=== PATIENT | female | born 1950 | race Caucasian/White ===

== ENCOUNTER 2017-04-19 10:12 | Inpatient (IN) | payer MEDICAID, OTHER ==
[~2017-04-19] VITALS: Ht 167.6 cm; Wt 61.8 kg
[2017-04-19] MEDS ORDERED: KETOROLAC 30 MG INJ IM STA (10:39)
[2017-04-19] MEDS ORDERED: HYDROCODONE/APAP (5/325) TAB PO ONE (11:00)
--- NOTE | 2017-04-19 11:49 | RADRPT ---
PROCEDURE: XR Chest. CLINICAL INDICATION: Pain TECHNIQUE: Single frontal view of the chest was obtained COMPARISON: None FINDINGS: Bilateral small pleural effusions. No pneumothorax. Bibasilar opacities. Top normal cardiomediastinal silhouette. No acute osseous abnormality. IMPRESSION: Small bilateral pleural effusions and bibasilar opacities, which may represent atelectasis and / or consolidation. Superimposed infection to be determined clinically. Recommend clinical correlation. RPTAT: EE Physician Karl Date Time Electronically viewed and signed by Don Tavares Physician on 04/19/2017 11:48 /
--- NOTE | 2017-04-19 12:09 | RADRPT ---
PROCEDURE: XR Left Shoulder CLINICAL INDICATION: Pain TECHNIQUE: 3 views were submitted. COMPARISON: None FINDINGS: Osseous structures: appear well mineralized and intact with no fracture or destructive process iden tified. Joint spaces: The glenohumeral joint appears unremarkable. The left AC joint appears unremarkable. Soft tissues: Discoid atelectasis or streaky infiltrate is seen at the left lung base. IMPRESSION: 1. Unremarkable left shoulder 2. Discoid atelectasis or streaky infiltrate seen at the left lung base. Physician Chirag Date Time Electronically viewed and signed by Carla Fulton Physician on 04/19/2017 12:09 /
--- NOTE | 2017-04-19 12:11 | RADRPT ---
PROCEDURE: XR cervical spine CLINICAL INDICATION: Pain TECHNIQUE: 3 standard radiographs were obtained of the cervical spine. COMPARISON: None FINDINGS: Alignment: is normal without subluxation. The atlantoaxial relationship appears normal Disk spaces: There is relative loss of disc height at C5-C6 and at C6-C7 with moderate anterior spon dylosis on the endplates. Osseous structures : appear intact with no fracture or destructive process identified. Soft tissues: are unremarkable. IMPRESSION: 1. Degenerative disc and endplate changes evident and C5-C6 and C6-C7. 2. Otherwise, unremarkable cervical spine series. Physician Chirag Date Time Electronically viewed and signed by Physician Chirag on 04/19/2017 12:10 /
[2017-04-19] MEDS ORDERED: SOD CHLORIDE 0.9% 100 ML ONE (13:56)
[2017-04-19] MEDS ORDERED: IOHEXOL 100 ML ONE (13:56)
--- NOTE | 2017-04-19 14:44 | RADRPT ---
PROCEDURE: CTA Chest and pulmonary angiogram. CLINICAL INDICATION: Chest pain and shortness of breath. TECHNIQUE: CT scan of the chest and CT pulmonary angiogram was performed on a multidetector high-r [employer] CT scanner. High-resolution thin slice coronal and sagittal imaging was obtained from the axial source images. 3-D volumetric rendered post processing was performed as well. The patient w as examined following the uncomplicated intravenous administration of 100 cc of Omnipaque-350. The i mages were reviewed on a PACS workstation. One or more of the following dose reduction techniques we re used: Automated exposure control, adjustment of the mA and/or kV according to patient size, use of iterative reconstruction technique. The total exam CTDI equals 35.2, 8.41 and the total exam DLP equals 282.21 mGy-cm. COMPARISON: None available. FINDINGS: CT chest: Bilateral subpleural reticulation and scarring is seen with predominately lower lobe distribution, w orst in the left lower lobe. There is also mild bilateral lower lobe bronchiectasis. There is trace left effusion. No focal opacification, pneumothorax, edema, or nodules are seen. The central trache obronchial tree is clear. There is a prominent subcarinal lymph node measuring 2.8 x 1.2 x 2.3 cm. Additional mildly prominent pretracheal and prevascular lymph nodes measure up to 1 cm in diameter. The vascular structures o f the mediastinum are normal in course and caliber. The heart size is normal without pericardial th ickening or effusion. The axillary, subpectoral, and supraclavicular regions are unremarkable. Imaging obtained through the upper abdomen is unremarkable. The surrounding chest wall is unremark able. The osseous structures are remarkable for degenerative spondylosis of the spine. CT pulmonary angiogram: Filling defects are seen within subsegmental branches of the left lower lobe consistent with pulmona ry emboli. No additional thrombus, clot, filling defect, or pulmonary web is identified. The pulmon dali arteries are normal in caliber and morphology. There is no evidence for pulmonary arterial hype rtension. IMPRESSION: 1. Left lower lobe subsegmental pulmonary embolism. 2. Bilateral subpleural reticulation and scarring, worse in the left lower lobe, concerning for chr onic interstitial lung change. 3. Mild bilateral lower lobe bronchiectasis. 4. Nonspecific prominent subcarinal, paratracheal, and prevascular lymph nodes. May be reactive. 5. Trace left effusion. Findings discussed with Dr. Moses on 04/19/2107 at 02:40 PM. RPTAT: QQ .Marc Montero MD, MD Date Time Electronically viewed and signed by .Marc Montero MD, MD on 04/19/2017 14:43 .A/
[2017-04-19] MEDS ORDERED: ENOXAPARIN 80 MG/0.8 ML SYG SC SCH (15:30)
[2017-04-19] MEDS ORDERED: METF500T4 PO (15:49)
--- NOTE | 2017-04-19 16:07 | ERD ---
ER Documentation Chief Complaint Chief Complaint Complains of left shoulder pain HPI This is 66-year-old female who complains of 2 days ago the onset of some pain in her left paraspinal cervical region and then she said it was spreading into her left shoulder and left posterior mid axillary chest wall. She says she was short of breath and felt pleuritic chest pain described as sharp worse when she breathes in but has not had a cough and no trauma. She states she has no substernal chest pressure. She has had no cough or hemoptysis no tachycardia or palpitations. She says the pain is worse when she moves ROS All systems reviewed and are negative except as per history of present illness. Medications Home Meds Reported Medications Metformin* (Glucophage*) 500 Mg Tab, 500 MG PO BID, #30 TAB 04/19/17 Allergies Allergies: Coded Allergies: No Known Allergy (Unverified , 04/19/17) PMhx/Soc Medical and Surgical Hx: pt denies Surgical Hx Hx Cardiac Disorders: Yes (hypertension and diabetes mellitus) Hx Psychiatric Problems: No Hx Miscellaneous Medical Probl: Yes Hx Alcohol Use: No Hx Substance Use: No Hx Tobacco Use: No Smoking Status: Never smoker FmHx Family History: No coronary disease Physical Exam Vitals Vital Signs Date Time Temp Pulse Resp B/P Pulse Ox O2 Delivery O2 Flow Rate FiO2 04/19/17 15:25 72 17 131/65 100 Room Air 04/19/17 10:17 98.9 93 20 145/72 99 Physical Exam Const: Well-developed, well-nourished Head: Atraumatic, normocephalic Eyes: Normal Conjunctiva, PERRLA, EOMI, normal sclera, no nystagmus ENT: Normal External Ears, Nose and Mouth, moist mucus membranes. Neck: Full range of motion. No meningismus, no lymphadenopathy. Resp: Clear to auscultation bilaterally, no wheezing, rhonchi, rales, the left midaxillary and posterior chest wall are tender to palpation and pain is reproducible, the pain is also worse with rotation of the trunk Cardio: Regular rate and rhythm, no murmurs, S1 S2 present Abd: Soft, non tender x 4, non distended. Normal bowel sounds, no guarding or rebound, no pulsitile abdominal masses or bruits Skin: No petechiae or rashes, no ecchymosis , no maculopapular rash Back: No midline or flank tenderness Ext: No cyanosis, or edema, FROM x 4, normal inspection, neurovascularly intact x 4 Neur: Awake and alert, STR 5/5 x 4, sensation intact x 4, no focal findings, cerebellum intact Psych: Normal Mood and Affect Result Diagram: 04/19/17 1215 04/19/17 1215 Results 24 hrs Laboratory Tests Test 04/19/17 12:10 04/19/17 12:15 Urine Color YELLOW Urine Clarity CLEAR Urine pH 7.0 Urine Specific [place] 1.006 Urine Ketones NEGATIVEmg/dL Urine Nitrite NEGATIVEmg/dL Urine Bilirubin NEGATIVEmg/dL Urine Urobilinogen NEGATIVEmg/dL Urine Leukocyte Esterase TRACELeu/ul Urine Microscopic RBC 0/HPF Urine Microscopic WBC 4/HPF Urine Hemoglobin NEGATIVEmg/dL Urine Glucose NEGATIVEmg/dL Urine Total Protein NEGATIVEmg/dl White Blood Count 16.610^3/ul Red Blood Count 3.7210^6/ul Hemoglobin 10.5g/dl Hematocrit 31.8% Mean Corpuscular Volume 85.5fl Mean Corpuscular Hemoglobin 28.2pg Mean Corpuscular Hemoglobin Concent 33.0g/dl Red Cell Distribution Width 14.4% Platelet Count 89210^3/UL Mean Platelet Volume 10.9fl Neutrophils % 71.9% Lymphocytes % 19.7% Monocytes % 7.4% Eosinophils % 0.1% Basophils % 0.5% Nucleated Red Blood Cells % 0.0/100WBC Neutrophils # 12.010^3/ul Lymphocytes # 3.310^3/ul Monocytes # 1.210^3/ul Eosinophils # 0.010^3/ul Basophils # 0.110^3/ul Nucleated Red Blood Cells # 0.010^3/ul Sodium Level 142mmol/L Potassium Level 4.4mmol/L Chloride Level 106mmol/L Carbon Dioxide Level 26mmol/L Anion Gap 14 Blood Urea Nitrogen 10mg/dl Creatinine 0.81mg/dl Glucose Level 127mg/dl Calcium Level 9.9mg/dl Total Bilirubin 0.2mg/dl Direct Bilirubin 0.00mg/dl Indirect Bilirubin 0.2mg/dl Aspartate Amino Transf (AST/SGOT) 52IU/L Alanine Aminotransferase (ALT/SGPT) 29IU/L Alkaline Phosphatase 85IU/L Total Protein 8.4g/dl Albumin 4.2g/dl Globulin 4.20g/dl Albumin/Globulin Ratio 1.00 Lipase 14U/L Current Medications Medications (Trade) Dose Ordered Sig/Sheryl Route PRN Reason Start Time Stop Time Status Last Admin Dose Admin Ketorolac Tromethamine (Toradol) 30 mg ONCE STAT IM 04/19/17 10:39 04/19/17 10:42 DC 04/19/17 11:10 Acetaminophen/ Hydrocodone Bitart 1 tab 1 tab ONCE ONCE PO 04/19/17 11:00 04/19/17 11:01 DC 04/19/17 11:11 Iohexol 100 ml @ ud STK-MED ONCE .ROUTE 04/19/17 13:56 04/19/17 13:57 DC Sodium Chloride (NS) 100 ml @ ud STK-MED ONCE .ROUTE 04/19/17 13:56 04/19/17 13:57 DC Enoxaparin Sodium (Lovenox) 60 mg ONCE SC 04/19/17 15:30 04/19/17 15:38 Procedures/MDM PROCEDURE: XR Left Shoulder CLINICAL INDICATION: Pain TECHNIQUE: 3 views were submitted. COMPARISON: None FINDINGS: Osseous structures: appear well mineralized and intact with no fracture or destructive process identified. Joint spaces: The glenohumeral joint appears unremarkable. The left AC joint appears unremarkable. Soft tissues: Discoid atelectasis or streaky infiltrate is seen at the left lung base. IMPRESSION: 1. Unremarkable left shoulder 2. Discoid atelectasis or streaky infiltrate seen at the left lung base. Physician Chirag Date Time Electronically viewed and signed by Physician Chirag on 04/19/2017 12:09 RH/ CC: PINA MOSES MD PROCEDURE: XR Chest. CLINICAL INDICATION: Pain TECHNIQUE: Single frontal view of the chest was obtained COMPARISON: None FINDINGS: Bilateral small pleural effusions. No pneumothorax. Bibasilar opacities. Top normal cardiomediastinal silhouette. No acute osseous abnormality. IMPRESSION: Small bilateral pleural effusions and bibasilar opacities, which may represent atelectasis and / or consolidation. Superimposed infection to be determined clinically. Recommend clinical correlation. RPTAT: EE Don Tavares Physician Date Time Electronically viewed and signed by Physician Karl on 04/19/2017 11 :48 GC/ CC: PINA MOSES MD PROCEDURE: XR cervical spine CLINICAL INDICATION: Pain TECHNIQUE: 3 standard radiographs were obtained of the cervical spine. COMPARISON: None FINDINGS: Alignment: is normal without subluxation. The atlantoaxial relationship appears normal Disk spaces: There is relative loss of disc height at C5-C6 and at C6-C7 with moderate anterior spondylosis on the endplates. Osseous structures : appear intact with no fracture or destructive process identified. Soft tissues: are unremarkable. IMPRESSION: 1. Degenerative disc and endplate changes evident and C5-C6 and C6-C7. 2. Otherwise, unremarkable cervical spine series. Physician hCirag Date Time Electronically viewed and signed by Physician Chirag on 04/19/2017 12:10 RH/ CC: PINA MOSES MD PROCEDURE: CTA Chest and pulmonary angiogram. CLINICAL INDICATION: Chest pain and shortness of breath. TECHNIQUE: CT scan of the chest and CT pulmonary angiogram was performed on a multidetector high-resolution CT scanner. High-resolution thin slice coronal and sagittal imaging was obtained from the axial source images. 3-D volumetric rendered post processing was performed as well. The patient was examined following the uncomplicated intravenous administration of 100 cc of Omnipaque- 350. The images were reviewed on a PACS workstation. One or more of the following dose reduction techniques were used: Automated exposure control, adjustment of the mA and/or kV according to patient size, use of iterative reconstruction technique. The total exam CTDI equals 35.2, 8.41 and the total exam DLP equals 282.21 mGy-cm. COMPARISON: None available. FINDINGS: CT chest: Bilateral subpleural reticulation and scarring is seen with predominately lower lobe distribution, worst in the left lower lobe. There is also mild bilateral lower lobe bronchiectasis. There is trace left effusion. No focal opacification , pneumothorax, edema, or nodules are seen. The central tracheobronchial tree is clear. There is a prominent subcarinal lymph node measuring 2.8 x 1.2 x 2.3 cm. Additional mildly prominent pretracheal and prevascular lymph nodes measure up to 1 cm in diameter. The vascular structures of the mediastinum are normal in course and caliber. The heart size is normal without pericardial thickening or effusion. The axillary, subpectoral, and supraclavicular regions are unremarkable. Imaging obtained through the upper abdomen is unremarkable. The surrounding chest wall is unremarkable. The osseous structures are remarkable for degenerative spondylosis of the spine. CT pulmonary angiogram: Filling defects are seen within subsegmental branches of the left lower lobe consistent with pulmonary emboli. No additional thrombus, clot, filling defect, or pulmonary web is identified. The pulmonary arteries are normal in caliber and morphology. There is no evidence for pulmonary arterial hypertension. IMPRESSION: 1. Left lower lobe subsegmental pulmonary embolism. 2. Bilateral subpleural reticulation and scarring, worse in the left lower lobe , concerning for chronic interstitial lung change. 3. Mild bilateral lower lobe bronchiectasis. 4. Nonspecific prominent subcarinal, paratracheal, and prevascular lymph nodes. May be reactive. 5. Trace left effusion. Findings discussed with Dr. Moses on 04/19/2107 at 02:40 PM. RPTAT: QQ .Marc Montero MD, Date Time Electronically viewed and signed by .Marc Montero MD, on 04/19/2017 14:43 .A/ CC: PINA MOSES MD The patient was given Lovenox subcu for the pulmonary embolism. We will admit the patient to be treated for pulmonary embolism Critical Care Time: 30 minutes Treatments/Evaluations: Close monitoring and treatment of unstable vital signs, cardiorespiratory, and neurologic status, while maintaining tight balance of fluid, respiratory, and cardiac interventions. This time includes discussing the case with the patient and the patient's family. This time does not include all procedures stated elsewhere in this record. This time also includes reviewing old records, labs and radiological studies. This time includes examining and re-examining the patient. Additionally, this time also includes arranging care with admitting and consulting physicians. Departure Diagnosis: Primary Impression: Pulmonary embolism Pulmonary embolism type: other Chronicity: acute Acute cor pulmonale presence: without acute cor pulmonale Qualified Code: I26.99 - Other acute pulmonary embolism without acute cor pulmonale Condition: Stable TIM GREENWOOD DO Apr 19, 2017 16:07
[2017-04-19] MEDS ORDERED: ONDANSETRON 4 MG INJ IV PRN ×2 (18:00→18:30)
[2017-04-19] MEDS ORDERED: ACETAMINOPHEN 325 MG TAB PO PRN ×2 (18:00→18:30)
[2017-04-19] MEDS ORDERED: MAGNESIUM HYDROXIDE 30ML CUP PO PRN (18:30)
[2017-04-19] MEDS ORDERED: DOCUSATE SODIUM 100 MG CAP PO PRN (18:30)
[2017-04-19] MEDS ORDERED: NACL 0.9% 3 ML SYG IV SCH (18:30)
--- NOTE | 2017-04-19 18:31 | HP ---
Date/Time of Note Date/Time of Note DATE: 04/19/17 TIME: 18:31 Assessment/Plan VTE Prophylaxis VTE Prophylaxis Intervention: LMWH Assessment/Plan Assessment/Plan 1. Acute left lower lobe subsegmental pulmonary embolism - Patient presented with shoulder and neck pain as well as chest wall tenderness. - CTA shows acute left lower lobe subsegmental pulmonary embolism. Bilateral subpleural reticulation and scarring is seen with predominately lower lobe distribution, worst in the left lower lobe. There is also mild bilateral lower lobe bronchiectasis. - Started on full dose Lovenox - Pain management - Lidoderm patch to left chest wall for relief - O2 supplement as needed to maintain saturations >90% - Neb treatments - Pulmonology consult placed for further recommendations 2. DM - Will check A1c - ISS and accuchecks - Hold Metformin 3. HTN - BP stable. continue monitoring 4. Leukocytosis - Most likely reactive. - Normal neutrophils - Continue monitoring - patient afebrile and will hold off on started on any antibiotics 5. Depression - s/p of her years ago - stable. not on any medications 6. Diet - Carb control 7. Code status - Full Code 8. GI ppx - Pepcid 9. DVT ppx - Lovenox 10. Disposition - Admit to telemetry for close monitoring HPI/ROS Admit Date/Time Admit Date/Time 04/19/2017 Hx of Present Illness 66 yo F with PMH Diabetes Mellitus, HTN, and depression presented to ED c/o 8/ 10 pain in left cervical area, left shoulder and left posterior mid axillary chest wall for the past 2 days. Patient has associated difficulty breathing with deep inspiratory secondary to pain but denies any fevers, cough, wheezing, dizziness, nausea, vomiting, dysuria, or abdominal issues. She states pain is worse with deep breaths and movement, and better with pain medications. States has been doing a lot of house work over the past couple days but denies being immobile for long period of time. ROS All 12 systems reviewed and pertinent positives as per HPI. All others negative. Constitutional: No chills, No fatigue, No febrile, No nausea Eyes: no complaints ENT: No congestion, No pain Respiratory: pleuritic pain, shortness of breath, No cough, No sputum, No wheezing Cardiovascular: chest pain, No edema, No lightheadedness, No palpitations Gastrointestinal: no complaints, No constipation, No diarrhea, No nausea, No vomiting Genitourinary: no complaints Musculoskeletal: back pain, neck pain Skin: no complaints, No pruritis, No rash Neurologic: no complaints Endocrine: no complaints Lymphatic: no complaints Psychological: depression Immunologic: no complaints PMH/Family/Social Past Medical History Medical History: diabetes, hypertension, other (depression after loss of ) Past Surgical History Past Surgical Hx: no surgical history Family History Significant Family History: no pertinent family hx Social History Alcohol Use: none Smoking Status: Never smoker Drug Use: none Exam/Review of Systems Vital Signs Vitals Vital Signs Date Time Temp Pulse Resp B/P Pulse Ox O2 Delivery O2 Flow Rate FiO2 04/19/17 17:55 68 24 128/70 98 Nasal Cannula 2.0 04/19/17 10:17 98.9 Exam Constitutional: alert, distress (secondary to pain with inspiration and movement), oriented, well developed Psych: nl mood/affect Head: atraumatic, normocephalic Eyes: EOMI, PERRL, nl sclera Neck: other (tender left cervical spine), supple Respiratory: diminished breath sounds, normal air movement, other (tenderness to palpation left midaxillary and posterior chest wall), No crackles/rales, No wheezing Cardiovascular: regular rate and rhythm, No edema, No murmurs/extra sounds, No systolic murmur Gastrointestinal: bowel sounds, non-tender, soft, No distended, No rebound or guarding Genitourinary - Female: No CVA tenderness Musculoskeletal: nl extremities to inspection Extremities: normal pulses Neurological: [employer] TE[employer]ICIAN II-XII intact, nl mental status, nl speech Skin: nl turgor Lymph: nl lymph nodes Labs Result Diagram: 04/19/17 1215 04/19/17 1215 Medications Medications Home medications reviewed Current Medications Enoxaparin Sodium (Lovenox) 60 mg ONCE SC Last administered on 04/19/17t 15:38 ; Admin Dose 60 MG; Start 04/19/17 at 15:30 Procedures Procedures PROCEDURE: CTA Chest and pulmonary angiogram. FINDINGS: CT chest: Bilateral subpleural reticulation and scarring is seen with predominately lower lobe distribution, worst in the left lower lobe. There is also mild bilateral lower lobe bronchiectasis. There is trace left effusion. No focal opacification , pneumothorax, edema, or nodules are seen. The central tracheobronchial tree is clear. There is a prominent subcarinal lymph node measuring 2.8 x 1.2 x 2.3 cm. Additional mildly prominent pretracheal and prevascular lymph nodes measure up to 1 cm in diameter. The vascular structures of the mediastinum are normal in course and caliber. The heart size is normal without pericardial thickening or effusion. The axillary, subpectoral, and supraclavicular regions are unremarkable. Imaging obtained through the upper abdomen is unremarkable. The surrounding chest wall is unremarkable. The osseous structures are remarkable for degenerative spondylosis of the spine. CT pulmonary angiogram: Filling defects are seen within subsegmental branches of the left lower lobe consistent with pulmonary emboli. No additional thrombus, clot, filling defect, or pulmonary web is identified. The pulmonary arteries are normal in caliber and morphology. There is no evidence for pulmonary arterial hypertension. IMPRESSION: 1. Left lower lobe subsegmental pulmonary embolism. 2. Bilateral subpleural reticulation and scarring, worse in the left lower lobe , concerning for chronic interstitial lung change. 3. Mild bilateral lower lobe bronchiectasis. 4. Nonspecific prominent subcarinal, paratracheal, and prevascular lymph nodes. May be reactive. 5. Trace left effusion. PROCEDURE: XR cervical spine FINDINGS: Alignment: is normal without subluxation. The atlantoaxial relationship appears normal Disk spaces: There is relative loss of disc height at C5-C6 and at C6-C7 with moderate anterior spondylosis on the endplates. Osseous structures : appear intact with no fracture or destructive process identified. Soft tissues: are unremarkable. IMPRESSION: 1. Degenerative disc and endplate changes evident and C5-C6 and C6-C7. 2. Otherwise, unremarkable cervical spine series. PROCEDURE: XR Chest. FINDINGS: Bilateral small pleural effusions. No pneumothorax. Bibasilar opacities. Top normal cardiomediastinal silhouette. No acute osseous abnormality. IMPRESSION: Small bilateral pleural effusions and bibasilar opacities, which may represent atelectasis and / or consolidation. Superimposed infection to be determined clinically. Recommend clinical correlation. PROCEDURE: XR Left Shoulder CLINICAL INDICATION: Pain TECHNIQUE: 3 views were submitted. COMPARISON: None FINDINGS: Osseous structures: appear well mineralized and intact with no fracture or destructive process identified. Joint spaces: The glenohumeral joint appears unremarkable. The left AC joint appears unremarkable. Soft tissues: Discoid atelectasis or streaky infiltrate is seen at the left lung base. IMPRESSION: 1. Unremarkable left shoulder 2. Discoid atelectasis or streaky infiltrate seen at the left lung base. ESPERANZA SAEED MD Apr 19, 2017 18:31
[2017-04-19] MEDS: morphine 2 MG INJ IV PRN (18:37)
[2017-04-19 18:58] VITALS: BP 159/70; PULSE 71; RESP 22
[2017-04-19 19:00] VITALS: Ht 167.6 cm; Wt 61.8 kg
[2017-04-19] MEDS ORDERED: GLUCOSE GEL 15 GRAM TUBE BUCCAL PRN (19:00)
[2017-04-19] MEDS ORDERED: GLUCAGON 1 MG INJ IM PRN (19:00)
[2017-04-19] MEDS ORDERED: GLUCOSE GEL 15 GRAM TUBE PO PRN ×2 (19:00)
[2017-04-19] MEDS ORDERED: DEXTROSE 50% 50 ML SYRINGE IV PRN ×2 (19:00)
[2017-04-19 19:05] VITALS: PULSE 71
[2017-04-19] MEDS: HYDROCODONE/APAP (5/325) TAB PO PRN (19:53)
[2017-04-19 19:55] VITALS: BP 159/70; RESP 18
[2017-04-19 20:00] VITALS: PULSE 80
[2017-04-19] MEDS: ALBUTEROL 0.083% (NEB) 2.5 MG/3 ML AMP HHN SCH (20:07)
[2017-04-19] MEDS: INSULIN ASPART [NOVOLOG] 3 ML PEN SC SCH (21:00)
[2017-04-19] MEDS: LIDOCAINE 5% PATCH TD SCH (21:54)
[2017-04-19] MEDS: FAMOTIDINE 20 MG TAB PO SCH (21:55)
[2017-04-19 23:49] VITALS: BP 116/57; RESP 18
[2017-04-20] VITALS (12 sets, daily range): BP systolic 102–143; BP diastolic 55–71; PULSE 78–98; RESP 16–20
[2017-04-20] MEDS: morphine 2 MG INJ IV PRN ×2 (01:03→21:02)
[2017-04-20] MEDS: ACCU-CHEK XX SCH (02:00)
[2017-04-20] MEDS: HYDROmorphONE 0.5 MG/0.5 ML SYG IV PRN (04:24)
[2017-04-20] MEDS: HYDROCODONE/APAP (5/325) TAB PO PRN ×3 (06:32→19:18)
[2017-04-20] MEDS: FAMOTIDINE 20 MG TAB PO SCH ×2 (08:56→21:00)
[2017-04-20] MEDS: INSULIN ASPART [NOVOLOG] 3 ML PEN SC SCH ×4 (08:57→21:22)
[2017-04-20] MEDS ORDERED: ENOXAPARIN 100 MG/ML SYG SC SCH (09:00)
[2017-04-20] MEDS: ALBUTEROL 0.083% (NEB) 2.5 MG/3 ML AMP HHN SCH ×4 (09:43→20:02)
--- NOTE | 2017-04-20 13:32 | PN ---
Date/Time of Note Date/Time of Note DATE: 04/20/17 TIME: 13:32 Assessment/Plan VTE Prophylaxis VTE Prophylaxis Intervention: LMWH Lines/Catheters IV [facility] (from [facility] Saline Lock Urinary Cath still in place: No Assessment/Plan Assessment/Plan 1. Acute left lower lobe subsegmental pulmonary embolism - Pulmonology on board and recommendations appreciated. Will need outpatient PFT - Transitioned patient to Eliquis 10mg BID for 7 days then 5mg BID. workers' compensation magistrate consultation placed to assess cost of medications as patients family covers her medical cost. - Will need to assess need for home O2 as well given patient has been desaturating with movement - CTA shows acute left lower lobe subsegmental pulmonary embolism. Bilateral subpleural reticulation and scarring is seen with predominately lower lobe distribution, worst in the left lower lobe. There is also mild bilateral lower lobe bronchiectasis. - Pain management - Lidoderm patch to left chest wall for relief - O2 supplement as needed to maintain saturations >90% - Neb treatments 2. DM - A1c 6.0 - ISS and accuchecks - Hold Metformin 3. HTN - BP stable. continue monitoring 4. Leukocytosis- resolved - Most likely reactive. - Continue monitoring 5. Depression - s/p of her 3 years ago - stable. not on any medications 6. Disposition - Continue monitoring in telemetry given patient still experiencing pain and labored breathing Subjective 24 Hr Interval Summary Free Text/Dictation Patient still experiencing pain in left chest area with little relief from lidoderm patch. Desaturates when she moves. No acute overnight events. Exam/Review of Systems Vital Signs Vitals Vital Signs Date Time Temp Pulse Resp B/P Pulse Ox O2 Delivery O2 Flow Rate FiO2 04/20/17 12:31 98.3 79 16 110/60 99 04/20/17 09:50 3.0 04/20/17 09:43 Nasal Cannula Intake and Output 04/19/17 04/19/17 04/20/17 15:00 23:00 07:00 Intake Total 240 ml Output Total 2 ml Balance 238 ml Exam General- in acute distress secondary to pain, awake and alert HEENT: NC/AT, PERRL, EOMI CVS: S1, S2 regular rate and rhythm. no murmurs appreciated Lungs: diminished breath sounds left side, shallow breathing, reproducible pain left midaxillary and posterior chest wall Abd: soft, NT, ND, +BS, no rebound or guarding Ext: no edema, cyanosis, or clubbing, +pulses Skin: warm, dry Results Result Diagram: 04/20/17 0516 04/20/17 0516 Results 24 hrs Laboratory Tests Test 04/19/17 19:52 04/20/17 05:16 04/20/17 08:21 04/20/17 11:22 Bedside Glucose 114 165 190 White Blood Count 10.4 # Red Blood Count 3.33 L Hemoglobin 9.2 L Hematocrit 28.7 L Mean Corpuscular Volume 86.2 Mean Corpuscular Hemoglobin 27.6 L Mean Corpuscular Hemoglobin Concent 32.1 Red Cell Distribution Width 14.6 H Platelet Count 324 Mean Platelet Volume 10.8 H Neutrophils % 64.3 Lymphocytes % 25.2 Monocytes % 9.0 Eosinophils % 0.8 Basophils % 0.5 Nucleated Red Blood Cells % 0.0 Neutrophils # 6.7 Lymphocytes # 2.6 Monocytes # 0.9 Eosinophils # 0.1 Basophils # 0.1 Nucleated Red Blood Cells # 0.0 Sodium Level 140 Potassium Level 4.5 Chloride Level 105 Carbon Dioxide Level 29 Anion Gap 11 Blood Urea Nitrogen 11 Creatinine 0.82 Glucose Level 110 Calcium Level 9.7 Phosphorus Level 3.3 Magnesium Level 2.1 Albumin 3.4 Medications Medications Current Medications Enoxaparin Sodium (Lovenox) 60 mg ONCE SC Last administered on 04/19/17 15:38 ; Admin Dose 60 MG; Start 04/19/17 at 15:30 Ondansetron HCl (Zofran Inj) 4 mg Q6H PRN IV NAUSEA AND/OR VOMITING; Start 04/19/17 at 18:30 Acetaminophen (Tylenol Tab) 650 mg Q6H PRN PO PAIN LEVEL 1-3 OR FEVER; Start 04/19/17 at 18:30 Acetaminophen/ Hydrocodone Bitart ([place] (5/325)) 1 tab Q6H PRN PO PAIN LEVEL 4 -6 Last administered on 04/20/17 12:54; Admin Dose 1 TAB; Start 04/19/17 at 18: 30 Morphine Sulfate (morphine) 2 mg Q4H PRN IV PAIN LEVEL 4-6 Last administered on 04/20/17 01:03; Admin Dose 2 MG; Start 04/19/17 at 18:30 Hydromorphone HCl (Dilaudid) 0.5 mg Q4H PRN IV PAIN LEVEL 7-10 Last administered on 04/20/17 04:24; Admin Dose 0.5 MG; Start 04/19/17 at 18:30 Docusate Sodium (Colace) 100 mg Q12H PRN PO CONSTIPATION; Start 04/19/17 at 18: 30 Magnesium Hydroxide (Milk Of Mag) 30 ml DAILY PRN PO CONSTIPATION; Start at 18:30 Famotidine (Pepcid) 20 mg Q12 PO Last administered on 04/20/17 08:56; Admin Dose 20 MG; Start 04/19/17 at 21:00 Enoxaparin Sodium (Lovenox) 60 mg Q12 SC Last administered on 04/20/17 08:58; Admin Dose 60 MG; Start 04/20/17 at 09:00 Diagnostic Test (Pha) (Accu-Chek) 1 ea 02 XX ; Start 04/20/17 at 02:00 Miscellaneous Information 1 ea NOTE XX ; Start 04/19/17 at 19:00 Glucose (Glutose) 15 gm Q15M PRN PO DECREASED GLUCOSE; Start 04/19/17 at 19:00 Glucose (Glutose) 22.5 gm Q15M PRN PO DECREASED GLUCOSE; Start 04/19/17 at 19: 00 Dextrose (D50w Syringe) 25 ml Q15M PRN IV DECREASED GLUCOSE; Start 04/19/17 at 19:00 Dextrose (D50w Syringe) 50 ml Q15M PRN IV DECREASED GLUCOSE; Start 04/19/17 at 19:00 Glucagon (Glucagen) 1 mg Q15M PRN IM DECREASED GLUCOSE; Start 04/19/17 at 19:00 Glucose (Glutose) 15 gm Q15M PRN BUCCAL DECREASED GLUCOSE; Start 04/19/17 at 19 :00 Lidocaine (Lidoderm) 1 patch DAILY@21 TD Last administered on 04/19/17 21:54; Admin Dose 1 PATCH; Start 04/19/17 at 21:00 ESPERANZA SAEED MD Apr 20, 2017 13:32
--- NOTE | 2017-04-20 15:44 | CONS ---
Date/Time of Note Date/Time of Note DATE: 04/20/17 TIME: 15:35 Assessment/Plan Assessment/Plan Additional Assessment/Plan IMP: 1. LLL Segmental and Subsegmental PE--no obvious risk factors for VTE. Though would benefit from limited hypercoag w/u as well as age appropriate malignancy screening 2. Possible UIP--based on CT findings of diffuse peripheral reticulations (with craniocaudad gradient) and traction bronchiectasis. Though her history of prolonged exposure to wood burning ovens raises possibility of Hut Lung with associated ILD. RECS: 1. May transition to Apixaban PO 2. Initiate hypercoag w/u (prothrombin gene mutation and factor V leiden) 3. Age appropriate cancer screening (mammo; colonoscopy; PAP) 4. Will likely require lifelong anticoagulation 5. Outpatient PFTs Consultation Date/Type/Reason Admit Date/Time 04/19/2017 Type of Consultation: Pulmonary Hx of Present Illness 66-year-old female with a history of DM, HTN, arthritis, presents with left- sided pleuritic chest pain and dyspnea over a course of 2-3 days. She denies any recent trauma, surgery, prolonged immobilization, or FH of hypercoagulable states. CTA showed LLL segmental and subsegmental PE and diffused peripheral reticulations and traction bronchiectasis. Constitutional: no complaints Eyes: no complaints ENT: No congestion, No pain Respiratory: pleuritic pain, shortness of breath, No cough, No sputum, No wheezing Cardiovascular: chest pain, No edema, No lightheadedness, No palpitations Gastrointestinal: no complaints, No constipation, No diarrhea, No nausea, No vomiting Genitourinary: no complaints Musculoskeletal: back pain, neck pain Skin: no complaints, No pruritis, No rash Neurologic: no complaints Lymphatic: no complaints Psychological: nl mood/affect Immunologic: no complaints Past Medical History Medical History: diabetes, hypertension, other (depression after loss of ) Past Surgical History Past Surgical Hx: no surgical history Family History Significant Family History: no pertinent family hx Social History Alcohol Use: none Smoking Status: Never smoker Drug Use: none Other Social History Lived in home in [place] with wood-burning oven. Exam/Review of Systems Vital Signs Vitals Vital Signs Date Time Temp Pulse Resp B/P Pulse Ox O2 Delivery O2 Flow Rate FiO2 04/20/17 14:17 98 3.0 04/20/17 14:16 85 20 Nasal Cannula 04/20/17 12:31 98.3 110/60 Intake and Output 04/19/17 04/19/17 04/20/17 15:00 23:00 07:00 Intake Total 240 ml Output Total 2 ml Balance 238 ml Exam Constitutional: alert, oriented, well developed Psych: no complaints Head: atraumatic, normocephalic Eyes: EOMI, nl conjunctiva, nl lids ENMT: nl external ears & nose, nl lips & teeth, nl nasal mucosa & septum Neck: non-tender, supple Respiratory: crackles/rales Cardiovascular: nl pulses, regular rate and rhythm Gastrointestinal: nl liver, spleen, non-tender, soft Musculoskeletal: nl extremities to inspection Extremities: normal pulses Neurological: HOME THEATRE TECHNICIAN II-XII intact, nl mental status, nl speech, nl strength Results Result Diagram: 04/20/17 0516 04/20/17 0516 Results 24 hrs Laboratory Tests Test 04/19/17 19:52 04/20/17 05:16 04/20/17 08:21 04/20/17 11:22 Bedside Glucose 114 165 190 White Blood Count 10.4 # Red Blood Count 3.33 L Hemoglobin 9.2 L Hematocrit 28.7 L Mean Corpuscular Volume 86.2 Mean Corpuscular Hemoglobin 27.6 L Mean Corpuscular Hemoglobin Concent 32.1 Red Cell Distribution Width 14.6 H Platelet Count 324 Mean Platelet Volume 10.8 H Neutrophils % 64.3 Lymphocytes % 25.2 Monocytes % 9.0 Eosinophils % 0.8 Basophils % 0.5 Nucleated Red Blood Cells % 0.0 Neutrophils # 6.7 Lymphocytes # 2.6 Monocytes # 0.9 Eosinophils # 0.1 Basophils # 0.1 Nucleated Red Blood Cells # 0.0 Sodium Level 140 Potassium Level 4.5 Chloride Level 105 Carbon Dioxide Level 29 Anion Gap 11 Blood Urea Nitrogen 11 Creatinine 0.82 Glucose Level 110 Calcium Level 9.7 Phosphorus Level 3.3 Magnesium Level 2.1 Albumin 3.4 Medications Medications Current Medications Enoxaparin Sodium (Lovenox) 60 mg ONCE SC Last administered on 04/19/17t 15:38 ; Admin Dose 60 MG; Start 04/19/17 at 15:30 Ondansetron HCl (Zofran Inj) 4 mg Q6H PRN IV NAUSEA AND/OR VOMITING; Start 04/19/17 at 18:30 Acetaminophen (Tylenol Tab) 650 mg Q6H PRN PO PAIN LEVEL 1-3 OR FEVER; Start 04/19/17 at 18:30 Acetaminophen/ Hydrocodone Bitart ([place] (5/325)) 1 tab Q6H PRN PO PAIN LEVEL 4 -6 Last administered on 04/20/17 12:54; Admin Dose 1 TAB; Start 04/19/17 at 18: 30 Morphine Sulfate (morphine) 2 mg Q4H PRN IV PAIN LEVEL 4-6 Last administered on 04/20/17 01:03; Admin Dose 2 MG; Start 04/19/17 at 18:30 Hydromorphone HCl (Dilaudid) 0.5 mg Q4H PRN IV PAIN LEVEL 7-10 Last administered on 04/20/17 04:24; Admin Dose 0.5 MG; Start 04/19/17 at 18:30 Docusate Sodium (Colace) 100 mg Q12H PRN PO CONSTIPATION; Start 04/19/17 at 18: 30 Magnesium Hydroxide (Milk Of Mag) 30 ml DAILY PRN PO CONSTIPATION; Start at 18:30 Famotidine (Pepcid) 20 mg Q12 PO Last administered on 04/20/17 08:56; Admin Dose 20 MG; Start 04/19/17 at 21:00 Enoxaparin Sodium (Lovenox) 60 mg Q12 SC Last administered on 04/20/17 08:58; Admin Dose 60 MG; Start 04/20/17 at 09:00 Diagnostic Test (Pha) (Accu-Chek) 1 ea 02 XX ; Start 04/20/17 at 02:00 Miscellaneous Information 1 ea NOTE XX ; Start 04/19/17 at 19:00 Glucose (Glutose) 15 gm Q15M PRN PO DECREASED GLUCOSE; Start 04/19/17 at 19:00 Glucose (Glutose) 22.5 gm Q15M PRN PO DECREASED GLUCOSE; Start 04/19/17 at 19: 00 Dextrose (D50w Syringe) 25 ml Q15M PRN IV DECREASED GLUCOSE; Start 04/19/17 at 19:00 Dextrose (D50w Syringe) 50 ml Q15M PRN IV DECREASED GLUCOSE; Start 04/19/17 at 19:00 Glucagon (Glucagen) 1 mg Q15M PRN IM DECREASED GLUCOSE; Start 04/19/17 at 19:00 Glucose (Glutose) 15 gm Q15M PRN BUCCAL DECREASED GLUCOSE; Start 04/19/17 at 19 :00 Lidocaine (Lidoderm) 1 patch DAILY@21 TD Last administered on 04/19/17t 21:54; Admin Dose 1 PATCH; Start 04/19/17 at 21:00 JEFF TOBAR MD Apr 20, 2017 15:44
[2017-04-20] MEDS: APIXABAN 5 MG TABLET PO SCH (21:00)
[2017-04-20] MEDS: LIDOCAINE 5% PATCH TD SCH (21:02)
[2017-04-21] VITALS (11 sets, daily range): BP systolic 108–128; BP diastolic 58–65; PULSE 80–110; RESP 17–20
[2017-04-21] MEDS: ACCU-CHEK XX SCH (02:34)
[2017-04-21] MEDS: morphine 2 MG INJ IV PRN ×2 (03:14→07:50)
[2017-04-21] MEDS: ALBUTEROL 0.083% (NEB) 2.5 MG/3 ML AMP HHN SCH ×3 (08:15→16:09)
[2017-04-21] MEDS: FAMOTIDINE 20 MG TAB PO SCH ×2 (08:33→20:56)
[2017-04-21] MEDS: APIXABAN 5 MG TABLET PO SCH ×2 (08:33→20:55)
[2017-04-21] MEDS: INSULIN ASPART [NOVOLOG] 3 ML PEN SC SCH ×3 (08:37→21:00)
[2017-04-21] MEDS: HYDROCODONE/APAP (5/325) TAB PO PRN ×2 (12:03→20:57)
--- NOTE | 2017-04-21 13:43 | CONS ---
Date/Time of Note Date/Time of Note DATE: 04/21/17 TIME: 13:41 Consult Date/Type/Reason Admit Date/Time Apr 19, 2017 at 17:49 Initial Consult Date Type of Consultation: Pulmonary Subjective Patient comfortable this morning still has moderate pleuritic chest pain however ambulating. Hypoxemia off supplemental O2. Objective Vital Signs Date Time Temp Pulse Resp B/P Pulse Ox O2 Delivery O2 Flow Rate FiO2 04/21/17 12:22 2.0 04/21/17 12:21 89 20 99 21 04/21/17 12:09 98.8 114/65 04/21/17 08:15 Nasal Cannula Intake and Output 04/20/17 04/20/17 04/21/17 15:00 23:00 07:00 Intake Total 600 ml 500 ml Balance 600 ml 500 ml Exam GENERAL: Well-developed lady comfortable at rest VITAL SIGNS: per chart NECK: Supple. No JVD or lymphadenopathy. CARDIAC EXAM: S1, S2. No added sounds or murmurs. CHEST: clear bilaterally, No added sounds, rales or wheezes ABDOMEN: Soft, nontender. No guarding or rebound. EXTREMITIES: No cyanosis, clubbing or edema. NEUROLOGIC: Generalized weakness. No focal deficits. Results/Medications Result Diagram: 04/21/17 0647 04/21/17 0647 Results 24 hrs Laboratory Tests Test 04/20/17 17:02 04/20/17 21:10 04/21/17 02:33 04/21/17 06:47 Bedside Glucose 191 190 133 White Blood Count 8.1 # Red Blood Count 3.45 L Hemoglobin 9.7 L Hematocrit 30.1 L Mean Corpuscular Volume 87.2 Mean Corpuscular Hemoglobin 28.1 L Mean Corpuscular Hemoglobin Concent 32.2 Red Cell Distribution Width 14.4 Platelet Count 395 # Mean Platelet Volume 10.3 Neutrophils % 61.5 Lymphocytes % 27.4 Monocytes % 7.3 Eosinophils % 3.1 Basophils % 0.5 Nucleated Red Blood Cells % 0.0 Neutrophils # 5.0 Lymphocytes # 2.2 Monocytes # 0.6 Eosinophils # 0.3 Basophils # 0.0 Nucleated Red Blood Cells # 0.0 Sodium Level 140 Potassium Level 4.7 Chloride Level 102 Carbon Dioxide Level 30 Anion Gap 13 Blood Urea Nitrogen 10 Creatinine 0.90 Glucose Level 146 Calcium Level 9.9 Phosphorus Level 3.7 Magnesium Level 2.2 Albumin 3.8 Test 04/21/17 08:32 04/21/17 12:01 Bedside Glucose 189 220 Medications Current Medications Ondansetron HCl (Zofran Inj) 4 mg Q6H PRN IV NAUSEA AND/OR VOMITING; Start 04/19/17 at 18:30 Acetaminophen (Tylenol Tab) 650 mg Q6H PRN PO PAIN LEVEL 1-3 OR FEVER; Start 04/19/17 at 18:30 Acetaminophen/ Hydrocodone Bitart ([place] (5/325)) 1 tab Q6H PRN PO PAIN LEVEL 4 -6 Last administered on 04/21/17 12:03; Admin Dose 1 TAB; Start 04/19/17 at 18: 30 Morphine Sulfate (morphine) 2 mg Q4H PRN IV PAIN LEVEL 4-6 Last administered on 04/21/17 07:50; Admin Dose 2 MG; Start 04/19/17 at 18:30 Hydromorphone HCl (Dilaudid) 0.5 mg Q4H PRN IV PAIN LEVEL 7-10 Last administered on 04/20/17 04:24; Admin Dose 0.5 MG; Start 04/19/17 at 18:30 Docusate Sodium (Colace) 100 mg Q12H PRN PO CONSTIPATION; Start 04/19/17 at 18: 30 Magnesium Hydroxide (Milk Of Mag) 30 ml DAILY PRN PO CONSTIPATION; Start at 18:30 Famotidine (Pepcid) 20 mg Q12 PO Last administered on 04/21/17 08:33; Admin Dose 20 MG; Start 04/19/17 at 21:00 Diagnostic Test (Pha) (Accu-Chek) 1 ea 02 XX Last administered on 04/21/17 02: 34; Admin Dose 1 EA; Start 04/20/17 at 02:00 Miscellaneous Information 1 ea NOTE XX ; Start 04/19/17 at 19:00 Glucose (Glutose) 15 gm Q15M PRN PO DECREASED GLUCOSE; Start 04/19/17 at 19:00 Glucose (Glutose) 22.5 gm Q15M PRN PO DECREASED GLUCOSE; Start 04/19/17 at 19: 00 Dextrose (D50w Syringe) 25 ml Q15M PRN IV DECREASED GLUCOSE; Start 04/19/17 at 19:00 Dextrose (D50w Syringe) 50 ml Q15M PRN IV DECREASED GLUCOSE; Start 04/19/17 at 19:00 Glucagon (Glucagen) 1 mg Q15M PRN IM DECREASED GLUCOSE; Start 04/19/17 at 19:00 Glucose (Glutose) 15 gm Q15M PRN BUCCAL DECREASED GLUCOSE; Start 04/19/17 at 19 :00 Lidocaine (Lidoderm) 1 patch DAILY@21 TD Last administered on 04/20/17 21:02; Admin Dose 1 PATCH; Start 04/19/17 at 21:00 Apixaban (Eliquis) 10 mg BID PO Last administered on 04/21/17 08:33; Admin Dose 10 MG; Start 04/20/17 at 21:00; Stop 04/27/17 at 09:01 Apixaban (Eliquis) 5 mg BID PO ; Start 04/27/17 at 21:00 Assessment/Plan Chief Complaint/Hosp Course IMP: 1. LLL Segmental and Subsegmental PE--no obvious risk factors for VTE. Though would benefit from limited hypercoag w/u as well as age appropriate malignancy screening 2. Possible UIP--based on CT findings of diffuse peripheral reticulations (with craniocaudad gradient) and traction bronchiectasis. Though her history of prolonged exposure to wood burning ovens raises possibility of Hut Lung with associated ILD. RECS: 1. May transition to Apixaban PO 2. Initiate hypercoag w/u (prothrombin gene mutation and factor V leiden) 3. Age appropriate cancer screening (mammo; colonoscopy; PAP) 4. Will likely require lifelong anticoagulation 5. Outpatient PFTs DC planning. Problems: BART BLOMO MD, [facility] Apr 21, 2017 13:43
--- NOTE | 2017-04-21 16:30 | PN ---
Date/Time of Note Date/Time of Note DATE: 04/21/17 TIME: 16:25 Assessment/Plan VTE Prophylaxis VTE Prophylaxis Intervention: ambulation Lines/Catheters [facility] Saline Lock Urinary Cath still in place: No Assessment/Plan Chief Complaint/Hosp Course 1. Acute left lower lobe subsegmental pulmonary embolism - Pulmonology on board and recommendations appreciated. Will need outpatient PFT - Transitioned patient to Eliquis 10mg BID for 7 days then 5mg BID. 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 - Will need to assess need for home O2 as well given patient has been desaturating with movement, but doing better today on room air. - CTA shows acute left lower lobe subsegmental pulmonary embolism. Bilateral subpleural reticulation and scarring is seen with predominately lower lobe distribution, worst in the left lower lobe. There is also mild bilateral lower lobe bronchiectasis. - Pain management - Lidoderm patch to left chest wall for relief - O2 supplement as needed to maintain saturations >90% - Neb treatments 2. DM - A1c 6.0 - ISS and accuchecks - Hold Metformin 3. HTN - BP stable. continue monitoring 4. Leukocytosis- resolved - Most likely reactive. - Continue monitoring 5. Depression - s/p of her 3 years ago - stable. not on any medications 6. Disposition - hypoxemia improving. working on getting medications delivered bedside. likely DC tomorrow if no need of O2 and meds get delivered Problems: Subjective 24 Hr Interval Summary Free Text/Dictation still has difficulty breathing, but improved Exam/Review of Systems Vital Signs Vitals Vital Signs Date Time Temp Pulse Resp B/P Pulse Ox O2 Delivery O2 Flow Rate FiO2 04/21/17 16:11 80 20 94 21 04/21/17 15:38 98.1 123/63 04/21/17 12:22 2.0 04/21/17 08:15 Nasal Cannula Intake and Output 04/20/17 04/20/17 04/21/17 15:00 23:00 07:00 Intake Total 600 ml 500 ml Balance 600 ml 500 ml Exam Physical exam General: Patient is laying in bed and answers questions appropriately Mentation: Patient is alert and oriented 4, Head: Normocephalic atraumatic Eyes: EOMI, pupils reactive to light Neck: Supple, nontender, midline Respiratory: Clear to auscultation bilaterally Cardiovascular: regular rate, no obvious murmurs Gastrointestinal: non-tender to palpation, bowel sounds heard. Neurological: Moves all extremities spontaneously Skin: No new skin lesions Results Result Diagram: 04/21/17 0647 04/21/17 0647 Results 24 hrs Laboratory Tests Test 04/20/17 17:02 04/20/17 21:10 04/21/17 02:33 04/21/17 06:47 Bedside Glucose 191 190 133 White Blood Count 8.1 # Red Blood Count 3.45 L Hemoglobin 9.7 L Hematocrit 30.1 L Mean Corpuscular Volume 87.2 Mean Corpuscular Hemoglobin 28.1 L Mean Corpuscular Hemoglobin Concent 32.2 Red Cell Distribution Width 14.4 Platelet Count 395 # Mean Platelet Volume 10.3 Neutrophils % 61.5 Lymphocytes % 27.4 Monocytes % 7.3 Eosinophils % 3.1 Basophils % 0.5 Nucleated Red Blood Cells % 0.0 Neutrophils # 5.0 Lymphocytes # 2.2 Monocytes # 0.6 Eosinophils # 0.3 Basophils # 0.0 Nucleated Red Blood Cells # 0.0 Sodium Level 140 Potassium Level 4.7 Chloride Level 102 Carbon Dioxide Level 30 Anion Gap 13 Blood Urea Nitrogen 10 Creatinine 0.90 Glucose Level 146 Calcium Level 9.9 Phosphorus Level 3.7 Magnesium Level 2.2 Albumin 3.8 Test 04/21/17 08:32 04/21/17 12:01 Bedside Glucose 189 220 Medications Medications Current Medications Ondansetron HCl (Zofran Inj) 4 mg Q6H PRN IV NAUSEA AND/OR VOMITING Last administered on 04/21/17 15:27; Admin Dose 4 MG; Start 04/19/17 at 18:30 Acetaminophen (Tylenol Tab) 650 mg Q6H PRN PO PAIN LEVEL 1-3 OR FEVER; Start 04/19/17 at 18:30 Acetaminophen/ Hydrocodone Bitart ([place] (5/325)) 1 tab Q6H PRN PO PAIN LEVEL 4 -6 Last administered on 04/21/17 12:03; Admin Dose 1 TAB; Start 04/19/17 at 18: 30 Morphine Sulfate (morphine) 2 mg Q4H PRN IV PAIN LEVEL 4-6 Last administered on 04/21/17 07:50; Admin Dose 2 MG; Start 04/19/17 at 18:30 Hydromorphone HCl (Dilaudid) 0.5 mg Q4H PRN IV PAIN LEVEL 7-10 Last administered on 04/20/17 04:24; Admin Dose 0.5 MG; Start 04/19/17 at 18:30 Docusate Sodium (Colace) 100 mg Q12H PRN PO CONSTIPATION; Start 04/19/17 at 18: 30 Magnesium Hydroxide (Milk Of Mag) 30 ml DAILY PRN PO CONSTIPATION; Start at 18:30 Famotidine (Pepcid) 20 mg Q12 PO Last administered on 04/21/17 08:33; Admin Dose 20 MG; Start 04/19/17 at 21:00 Diagnostic Test (Pha) (Accu-Chek) 1 ea 02 XX Last administered on 04/21/17 02: 34; Admin Dose 1 EA; Start 04/20/17 at 02:00 Miscellaneous Information 1 ea NOTE XX ; Start 04/19/17 at 19:00 Glucose (Glutose) 15 gm Q15M PRN PO DECREASED GLUCOSE; Start 04/19/17 at 19:00 Glucose (Glutose) 22.5 gm Q15M PRN PO DECREASED GLUCOSE; Start 04/19/17 at 19: 00 Dextrose (D50w Syringe) 25 ml Q15M PRN IV DECREASED GLUCOSE; Start 04/19/17 at 19:00 Dextrose (D50w Syringe) 50 ml Q15M PRN IV DECREASED GLUCOSE; Start 04/19/17 at 19:00 Glucagon (Glucagen) 1 mg Q15M PRN IM DECREASED GLUCOSE; Start 04/19/17 at 19:00 Glucose (Glutose) 15 gm Q15M PRN BUCCAL DECREASED GLUCOSE; Start 04/19/17 at 19 :00 Lidocaine (Lidoderm) 1 patch DAILY@21 TD Last administered on 04/20/17 21:02; Admin Dose 1 PATCH; Start 04/19/17 at 21:00 Apixaban (Eliquis) 10 mg BID PO Last administered on 04/21/17 08:33; Admin Dose 10 MG; Start 04/20/17 at 21:00; Stop 04/27/17 at 09:01 Apixaban (Eliquis) 5 mg BID PO ; Start 04/27/17 at 21:00 MARIUSZ ARAMBULA Apr 21, 2017 16:30
[2017-04-21] MEDS ORDERED: ALBUTEROL/IPRATROPIUM (NEB) 3 ML AMP HHN PRN (17:00)
[2017-04-21] MEDS: ALBUTEROL/IPRATROPIUM (NEB) 3 ML AMP HHN SCH (20:10)
[2017-04-21] MEDS: LIDOCAINE 5% PATCH TD SCH (20:59)
[2017-04-21] MEDS: HYDROmorphONE 0.5 MG/0.5 ML SYG IV PRN (23:29)
[2017-04-22] VITALS (7 sets, daily range): BP systolic 118–130; BP diastolic 62–72; PULSE 85–105; RESP 19
[2017-04-22] MEDS: ACCU-CHEK XX SCH (01:19)
[2017-04-22] MEDS: INSULIN ASPART [NOVOLOG] 3 ML PEN SC SCH ×2 (09:05→12:53)
[2017-04-22] MEDS: APIXABAN 5 MG TABLET PO SCH (09:07)
[2017-04-22] MEDS: FAMOTIDINE 20 MG TAB PO SCH (09:07)
[2017-04-22] MEDS: ALBUTEROL/IPRATROPIUM (NEB) 3 ML AMP HHN SCH ×2 (09:25→13:45)
--- NOTE | 2017-04-22 11:31 | CONS ---
Date/Time of Note Date/Time of Note DATE: 04/22/17 TIME: 11:30 Consult Date/Type/Reason Admit Date/Time Apr 19, 2017 at 17:49 Type of Consultation: Pulmonary Subjective Patient doing okay this morning. No new events. Objective Vital Signs Date Time Temp Pulse Resp B/P Pulse Ox O2 Delivery O2 Flow Rate FiO2 04/22/17 09:25 96 24 95 21 04/22/17 07:23 98.1 130/62 04/21/17 20:00 Room Air 04/21/17 12:22 2.0 Intake and Output 04/21/17 04/21/17 04/22/17 15:00 23:00 07:00 Intake Total 300 ml Balance 300 ml Exam GENERAL: Well-developed lady comfortable at rest VITAL SIGNS: per chart NECK: Supple. No JVD or lymphadenopathy. CARDIAC EXAM: S1, S2. No added sounds or murmurs. CHEST: Diminished air entry with rales left base. ABDOMEN: Soft, nontender. No guarding or rebound. EXTREMITIES: No cyanosis, clubbing or edema. NEUROLOGIC: Generalized weakness. No focal deficits. Results/Medications Result Diagram: 04/22/17 0632 04/22/17 0632 Results 24 hrs Laboratory Tests Test 04/21/17 12:01 04/21/17 17:18 04/21/17 20:26 04/22/17 06:32 Bedside Glucose 220 172 154 White Blood Count 9.1 Red Blood Count 3.56 L Hemoglobin 10.1 L Hematocrit 30.8 L Mean Corpuscular Volume 86.5 Mean Corpuscular Hemoglobin 28.4 L Mean Corpuscular Hemoglobin Concent 32.8 Red Cell Distribution Width 14.3 Platelet Count 452 H Mean Platelet Volume 10.4 Neutrophils % 57.7 Lymphocytes % 29.6 Monocytes % 7.6 Eosinophils % 4.3 Basophils % 0.6 Nucleated Red Blood Cells % 0.0 Neutrophils # 5.2 Lymphocytes # 2.7 Monocytes # 0.7 Eosinophils # 0.4 Basophils # 0.1 Nucleated Red Blood Cells # 0.0 Sodium Level 140 Potassium Level 4.6 Chloride Level 103 Carbon Dioxide Level 27 Anion Gap 15 Blood Urea Nitrogen 11 Creatinine 0.89 Glucose Level 143 Calcium Level 10.2 Phosphorus Level 3.6 Magnesium Level 2.2 Albumin 3.9 Test 04/22/17 07:46 Bedside Glucose 155 Medications Current Medications Ondansetron HCl (Zofran Inj) 4 mg Q6H PRN IV NAUSEA AND/OR VOMITING Last administered on 04/21/17 15:27; Admin Dose 4 MG; Start 04/19/17 at 18:30 Acetaminophen (Tylenol Tab) 650 mg Q6H PRN PO PAIN LEVEL 1-3 OR FEVER; Start 04/19/17 at 18:30 Acetaminophen/ Hydrocodone Bitart ([place] (5/325)) 1 tab Q6H PRN PO PAIN LEVEL 4 -6 Last administered on 04/21/17 20:57; Admin Dose 1 TAB; Start 04/19/17 at 18: 30 Morphine Sulfate (morphine) 2 mg Q4H PRN IV PAIN LEVEL 4-6 Last administered on 04/21/17 07:50; Admin Dose 2 MG; Start 04/19/17 at 18:30 Hydromorphone HCl (Dilaudid) 0.5 mg Q4H PRN IV PAIN LEVEL 7-10 Last administered on 04/21/17 23:29; Admin Dose 0.5 MG; Start 04/19/17 at 18:30 Docusate Sodium (Colace) 100 mg Q12H PRN PO CONSTIPATION; Start 04/19/17 at 18: 30 Magnesium Hydroxide (Milk Of Mag) 30 ml DAILY PRN PO CONSTIPATION; Start at 18:30 Famotidine (Pepcid) 20 mg Q12 PO Last administered on 04/22/17 09:07; Admin Dose 20 MG; Start 04/19/17 at 21:00 Diagnostic Test (Pha) (Accu-Chek) 1 ea 02 XX Last administered on 04/21/17 02: 34; Admin Dose 1 EA; Start 04/20/17 at 02:00 Miscellaneous Information 1 ea NOTE XX ; Start 04/19/17 at 19:00 Glucose (Glutose) 15 gm Q15M PRN PO DECREASED GLUCOSE; Start 04/19/17 at 19:00 Glucose (Glutose) 22.5 gm Q15M PRN PO DECREASED GLUCOSE; Start 04/19/17 at 19: 00 Dextrose (D50w Syringe) 25 ml Q15M PRN IV DECREASED GLUCOSE; Start 04/19/17 at 19:00 Dextrose (D50w Syringe) 50 ml Q15M PRN IV DECREASED GLUCOSE; Start 04/19/17 at 19:00 Glucagon (Glucagen) 1 mg Q15M PRN IM DECREASED GLUCOSE; Start 04/19/17 at 19:00 Glucose (Glutose) 15 gm Q15M PRN BUCCAL DECREASED GLUCOSE; Start 04/19/17 at 19 :00 Lidocaine (Lidoderm) 1 patch DAILY@21 TD Last administered on 04/21/17 20:59; Admin Dose 1 PATCH; Start 04/19/17 at 21:00 Apixaban (Eliquis) 10 mg BID PO Last administered on 04/22/17 09:07; Admin Dose 10 MG; Start 04/20/17 at 21:00; Stop 04/27/17 at 09:01 Apixaban (Eliquis) 5 mg BID PO ; Start 04/27/17 at 21:00 Assessment/Plan Chief Complaint/Hosp Course IMP: 1. LLL Segmental and Subsegmental PE--no obvious risk factors for VTE. Though would benefit from limited hypercoag w/u as well as age appropriate malignancy screening 2. Possible UIP--based on CT findings of diffuse peripheral reticulations (with craniocaudad gradient) and traction bronchiectasis. Though her history of prolonged exposure to wood burning ovens raises possibility of [place] [facility] with associated ILD. RECS: 1. Continue Eliquis 2. Initiate hypercoag w/u (prothrombin gene mutation and factor V leiden) follow -up with primary care 3. Age appropriate cancer screening (mammo; colonoscopy; PAP) 4. Will likely require lifelong anticoagulation 5. Outpatient PFTs DC planning. Problems: BART BLOOM MD, [facility] Apr 22, 2017 11:31
--- NOTE | 2017-04-22 11:47 | PDOCDIS ---
Discharge Instructions CONDITION Patient Condition: Stable HOME CARE INSTRUCTIONS: Special Diet: CARB CONTROL FOLLOW UP/APPOINTMENTS Follow-up Plan 1. Follow up with your primary care provider as soon as possible 2. Take eliquis 2 tabs, with breakfast and dinner, for 4 days. THEN take eliquis 1 tab, with breakfast and dinner, until stopped by primary doctor. 3. Take other medications as directed. MARIUSZ ARAMBULA Apr 22, 2017 11:47
[2017-04-22] MEDS ORDERED: APIX5TAB PO (11:48)
--- NOTE | 2017-04-22 14:58 | DS ---
Date/Time of Note Date/Time of Note DATE: 04/22/17 TIME: 14:58 Discharge Summary Admission/Discharge Info Admit Date/Time Apr 19, 2017 at 17:49 Discharge Date/Time Apr 22, 2017 at 13:59 Patient Condition: Stable Hx of Present Illness 66 yo F with PMH Diabetes Mellitus, HTN, and depression presented to ED c/o 8/ 10 pain in left cervical area, left shoulder and left posterior mid axillary chest wall for the past 2 days. Patient has associated difficulty breathing with deep inspiratory secondary to pain but denies any fevers, cough, wheezing, dizziness, nausea, vomiting, dysuria, or abdominal issues. She states pain is worse with deep breaths and movement, and better with pain medications. States has been doing a lot of house work over the past couple days but denies being immobile for long period of time. Hospital Course Patient is a 66-year-old female with past medical history significant for diabetes mellitus who presented with acute shortness of breath. Patient was found to have left-sided pulmonary embolism and patient was stabilized during the inpatient stay and continued on Lovenox. Patient was eventually transitioned to Eliquis at the PE dose and medications were delivered bedside with explicit instructions on how to finish her PE dose of Eliquis and where she can get refills and how to follow-up with a primary care provider. A aircraft electrical systems specialist was used as well as explained situation to patient's A[place]i speaking relative the day before. Patient is to continue home metformin and her patient's blood pressure is stable at this time and she needs to follow-up with her primary care provider. Patient understands all indications Discharge diagnosis Acute left lower lobe pulmonary embolism Diabetes mellitus Hypertension, controlled Leukocytosis, resolved Depression, chronic Home Meds Active Scripts Apixaban* (Eliquis*) 5 Mg Tablet, 5 MG PO BID for 30 Days, #60 TAB 2 Refills Prov:MARIUSZ ARAMBULA J 04/22/17 Reported Medications Metformin* (Glucophage*) 500 Mg Tab, 500 MG PO BID, #30 TAB 04/19/17 Follow-up Plan 1. Follow up with your primary care provider as soon as possible 2. Take eliquis 2 tabs, with breakfast and dinner, for 4 days. THEN take eliquis 1 tab, with breakfast and dinner, until stopped by primary doctor. 3. Take other medications as directed. Primary Care Provider Not On Staff Doctor Time spent on discharge: > 30 minutes Pending Labs Laboratory Tests Test 04/21/17 17:18 04/21/17 20:26 04/22/17 06:32 04/22/17 07:46 Bedside Glucose 172mg/dL (70-220) 154mg/dL (70-220) 155mg/dL (70-220) White Blood Count 9.110^3/ul (4.8-10.8) Red Blood Count 3.5610^6/ul (4.20-5.40) Hemoglobin 10.1g/dl (12.0-16.0) Hematocrit 30.8% (37.0-47.0) Mean Corpuscular Volume 86.5fl (82.0-101.0) Mean Corpuscular Hemoglobin 28.4pg (29.0-33.0) Mean Corpuscular Hemoglobin Concent 32.8g/dl (32.0-37.0) Red Cell Distribution Width 14.3% (11.5-14.5) Platelet Count 06583^3/UL (140-415) Mean Platelet Volume 10.4fl (7.4-10.4) Neutrophils % 57.7% (39.0-77.0) Lymphocytes % 29.6% (15.0-51.0) Monocytes % 7.6% (0.0-11.0) Eosinophils % 4.3% (0.0-7.0) Basophils % 0.6% (0.0-2.0) Nucleated Red Blood Cells % 0.0/100WBC (0.0-0.0) Neutrophils # 5.210^3/ul (1.6-7.5) Lymphocytes # 2.710^3/ul (0.8-2.9) Monocytes # 0.710^3/ul (0.3-0.9) Eosinophils # 0.410^3/ul (0.0-0.5) Basophils # 0.110^3/ul (0.0-0.1) Nucleated Red Blood Cells # 0.010^3/ul (0.0-0.0) Sodium Level 140mmol/L (135-144) Potassium Level 4.6mmol/L (3.5-5.1) Chloride Level 103mmol/L (97-110) Carbon Dioxide Level 27mmol/L (21-31) Anion Gap 15 (8-16) Blood Urea Nitrogen 11mg/dl (7-20) Creatinine 0.89mg/dl (0.44-1.00) Glucose Level 143mg/dl (70-220) Calcium Level 10.2mg/dl (8.4-10.2) Phosphorus Level 3.6mg/dl (2.5-4.9) Magnesium Level 2.2mg/dl (1.7-2.5) Albumin 3.9g/dl (3.3-4.9) Test 04/22/17 11:59 Bedside Glucose 195mg/dL (70-220) MARIUSZ ARAMBULA Apr 22, 2017 14:58
[2017-04-27] MEDS ORDERED: APIXABAN 5 MG TABLET PO SCH (21:00)
== END 2017-04-22 13:59 | disposition home or self-care (01) | DRG 176 ==
LOC: FTE 10:12 → TEL 17:49
PROVIDERS: ADMIT Internal Medicine; ATTEND Internal Medicine
DX: I26.99 Other pulmonary embolism without acute cor pulmonale (principal); I10 Essential (primary) hypertension; E11.9 Type 2 diabetes mellitus without complications; D72.829 Elevated white blood cell count, unspecified; J47.9 Bronchiectasis, uncomplicated
CPT/HCPCS: 36415; 71010; 71275; 72040; 73030; 80053; 80069; 81001; 82962; 83036; 83690; 83735; 85025; 93005; 94640; 94664; 96372; 96374; 96375; J1170; J1650; J1815; J1885; J2270; J2405; Q9967

== ENCOUNTER 2018-08-08 18:03 | Emergency (ER) | payer OTHER ==
[~2018-08-08] VITALS: Wt 70.0 kg
[~2018-08-08 18:03] MED LIST: APIX5TAB PO; IBUP-1542 PO; METF-849 PO
[2018-08-08] MEDS ORDERED: HYDROmorphONE 2 MG/ML SYG IV STA (18:38)
[2018-08-08] MEDS ORDERED: ONDANSETRON 4 MG INJ IV STA (18:38)
[2018-08-08] MEDS ORDERED: METHYLPREDNISOLONE 125 MG INJ IV ONE (19:00)
[2018-08-08] MEDS ORDERED: PRED20TA PO (21:26)
[2018-08-08] MEDS ORDERED: HYDR-3980 PO (21:26)
[2018-08-08] MEDS ORDERED: IBUP-1542 PO (21:26)
--- NOTE | 2018-08-08 21:30 | ERD ---
ER Documentation Chief Complaint Chief Complaint GENERALIZED JOINT AND BODY PAIN UNCLEAR WHEN IT STARTED HPI This is a 68-year-old female who has a one-year history of arthritis and is complaining of an exacerbation of her typical pain. She says she usually gets the most pain in her left arm and leg. She is complaining of diffuse arthralgias for the past 4 days. The pain is mostly in both shoulders left greater than right both elbows left greater than right hips knees and ankles. No swelling of the joints. No fever no chest pain shortness of breath no dysuria. The patient says the pain is dull and aching and worse with movement ROS All systems reviewed and are negative except as per history of present illness. Medications Home Meds Active Scripts Ibuprofen* (Motrin*) 600 Mg Tab, 600 MG PO Q8, #15 TAB Prov:TIM GREENWOOD DO 08/08/18 Hydrocodone/Acetaminophen ([place] 10-325 Tablet) 1 Each Tablet, 1 TAB PO Q6H PRN for PAIN, #9 TAB Prov:TIM GREENWOOD DO 08/08/18 Prednisone* (Prednisone*) 20 Mg Tab, 60 MG PO DAILY for 5 Days, TAB Prov:GINA GREENWOODSTSTEPHANYS Fadi. DO 08/08/18 Ibuprofen* (Motrin*) 600 Mg Tab, 600 MG PO Q6H PRN for PAIN AND OR ELEVATED TEMP, #30 TAB Prov:ISAIAH MARTINEZ MD 07/17/18 Apixaban* (Eliquis*) 5 Mg Tablet, 5 MG PO BID for 30 Days, #60 TAB 2 Refills Prov:MARIUSZ ARAMBULA 04/22/17 Reported Medications Metformin* (Glucophage*) 500 Mg Tab, 500 MG PO BID, #30 TAB 04/19/17 Allergies Allergies: Coded Allergies: No Known Allergy (Unverified , 04/19/17) PMhx/Soc History of Surgery: Yes (hysterectomy) Anesthesia Reaction: No Hx Neurological Disorder: No Hx Respiratory Disorders: No Hx Cardiac Disorders: Yes (HTN) Hx Psychiatric Problems: No Hx Miscellaneous Medical Probl: Yes (arthritis,DM) Hx Alcohol Use: No Hx Substance Use: No Hx Tobacco Use: No Smoking Status: Never smoker FmHx Family History: No coronary disease Physical Exam Vitals Vital Signs Date Temp Pulse Resp B/P (MAP) Pulse Ox O2 O2 Flow FiO2 Time Delivery Rate 08/08/18 98.3 79 18 170/77 99 18:09 (108) Physical Exam Const: Well-developed, well-nourished Head: Atraumatic, normocephalic Eyes: Normal Conjunctiva, PERRLA, EOMI, normal sclera, no nystagmus ENT: Normal External Ears, Nose and Mouth, moist mucus membranes. Neck: Full range of motion. No meningismus, no lymphadenopathy. Resp: Clear to auscultation bilaterally, no wheezing, rhonchi, rales Cardio: Regular rate and rhythm, no murmurs, S1 S2 present Abd: Soft, non tender x 4, non distended. Normal bowel sounds, no guarding or rebound, no pulsitile abdominal masses or bruits Skin: No petechiae or rashes, no ecchymosis , no maculopapular rash Back: No midline or flank tenderness Ext: No cyanosis, or edema, FROM x 4, normal inspection, neurovascularly intact x 4, the left shoulder is tender to palpation with decreased range of motion due to pain in the left elbow is tender to palpation with some mild decreased range of motion both wrists are sore to touch both knees and ankles are as well but there is no erythema or swelling of joints in any location Neur: Awake and alert, STR 5/5 x 4, sensation intact x 4, no focal f indings, cerebellum intact Psych: Normal Mood and Affect Result Diagram: 08/08/18184808/08/181848 Results 24 hrs Laboratory Tests Test 08/08/18 18:49 White Blood Count 10.0 10^3/ul Red Blood Count 3.21 10^6/ul Hemoglobin 7.9 g/dl Hematocrit 25.0 % Mean Corpuscular Volume 77.9 fl Mean Corpuscular Hemoglobin 24.6 pg Mean Corpuscular Hemoglobin Concent 31.6 g/dl Red Cell Distribution Width 15.7 % Platelet Count 531 10^3/UL Mean Platelet Volume 9.0 fl Immature Granulocytes % 0.500 % Neutrophils % 50.9 % Lymphocytes % 37.0 % Monocytes % 7.6 % Eosinophils % 3.3 % Basophils % 0.7 % Nucleated Red Blood Cells % 0.0 /100WBC Immature Granulocytes # 0.050 10^3/ul Neutrophils # 5.1 10^3/ul Lymphocytes # 3.7 10^3/ul Monocytes # 0.8 10^3/ul Eosinophils # 0.3 10^3/ul Basophils # 0.1 10^3/ul Nucleated Red Blood Cells # 0.0 10^3/ul Sodium Level 132 mmol/L Potassium Level 4.0 mmol/L Chloride Level 95 mmol/L Carbon Dioxide Level 28 mmol/L Anion Gap 9 Blood Urea Nitrogen 12 mg/dl Creatinine 0.58 mg/dl Est Glomerular Filtrat Rate mL/min > 60 mL/min Glucose Level 117 mg/dl Calcium Level 10.1 mg/dl Troponin I < 0.012 ng/ml Current Medications Medications Dose Sig/Sheryl Start Time Status Last (Trade) Ordered Route PRN Stop Time Admin Dose Reason Admin 125 mg ONCE ONCE 08/08/18 DC 08/08/18 Methylprednis IV 19:00 18:53 olone Sodium 08/08/18 19:01 Succinate (Solu-Medrol) 1 mg ONCE STAT 08/08/18 DC 08/08/18 Hydromorphone IV 18:38 18:53 HCl 08/08/18 18:40 (Dilaudid) Ondansetron 4 mg ONCE STAT 08/08/18 DC 08/08/18 HCl (Zofran IV 18:38 18:53 Inj) 08/08/18 18:40 Procedures/MDM Patient's labs are unremarkable. The patient says she feels much better after steroids and pain medication. This patient is having an exacerbation of her typical arthritis pain. I will discharge her home with prednisone, Motrin and [place]... Patient feels much better at this time, and vital signs are normal, symptoms have improved. I did give strict instructions to return to the ED if symptoms continue or worsen, patient will otherwise follow-up with primary care physi almaz. Patient understood instructions and agreed to plan. Disclaimer: Inadvertent spelling and grammatical errors are likely due to EHR/dictation software use and do not reflect on the overall quality of patient care. Also, please note that the electronic time recorded on this note does not necessarily reflect the actual time of the patient encounter. Departure Diagnosis: Primary Impression: Arthritis Additional Impression: RA (rheumatoid arthritis) Rheumatoid arthritis location: unspecified site Rheumatoid factor presence: unspecified presence Qualified Codes: M06.9 - Rheumatoid arthritis, unspecified Condition: Stable Patient Instructions: Arthralgia TIM GREENWOOD DO Aug 08, 2018 21:30
[2018-08-08 21:41] VITALS: BP 119/79; PULSE 65; RESP 14
== END 2018-08-08 21:46 | disposition home or self-care (01) ==
LOC: E/R 18:03
DX: M06.9 Rheumatoid arthritis, unspecified (principal); I10 Essential (primary) hypertension; E11.9 Type 2 diabetes mellitus without complications; Z79.84 Long term (current) use of oral hypoglycemic drugs
CPT/HCPCS: 36415; 80048; 84484; 85025; 93005; 96374; 96375; J1170; J2405; J2930; Z7502

== ENCOUNTER 2018-09-25 11:18 | Emergency (ER) | payer OTHER ==
[~2018-09-25] VITALS: Ht 160 cm; Wt 64.0 kg
[~2018-09-25 11:18] MED LIST changes: +HYDR-3980 PO; +PRED20TA PO
[2018-09-25 11:24] VITALS: BP 169/68; PULSE 85; RESP 18; Ht 160 cm; Wt 64.0 kg
[2018-09-25] MEDS ORDERED: KETOROLAC 30 MG INJ IM STA (12:35)
[2018-09-25] MEDS ORDERED: HYDROCODONE/APAP (5/325) TAB PO ONE (13:00)
[2018-09-25] MEDS ORDERED: DEXAMETHASONE 10 MG/ML 1 ML INJ IM ONE (13:00)
[2018-09-25] MEDS ORDERED: PRED10TA PO (13:30)
[2018-09-25] MEDS ORDERED: TRAM50TA2 PO (13:30)
--- NOTE | 2018-09-25 13:34 | ERD ---
ER Documentation Chief Complaint Chief Complaint pt is bib self with c/o pain all over,head,neck,back,leg HPI 68-year-old female presents with a history of rheumatoid arthritis. She compla ins of diffuse body aches and joint pains. She has no complaints of shortness of breath or chest pain. Her primary complaint her worst pain is in her shoulders, extremities and left knee. ROS All systems reviewed and are negative except as per history of present illness. Medications Home Meds Active Scripts Prednisone (Prednisone) 10 Mg Tab, 10 MG PO QDAY for 7 Days, TAB Prov:PINA HARRISON MD 09/25/18 Tramadol HCl (Tramadol HCl) 50 Mg Tablet, 50 MG PO Q4 PRN for PAIN, #20 TAB Prov:PINA HARRISON MD 09/25/18 Ibuprofen* (Motrin*) 600 Mg Tab, 600 MG PO Q8, #15 TAB Prov:TIM GREENWOOD DO 08/08/18 Hydrocodone/Acetaminophen ([place] 10-325 Tablet) 1 Each Tablet, 1 TAB PO Q6H PRN for PAIN, #9 TAB Prov:TIM GREENWOOD DO 08/08/18 Prednisone* (Prednisone*) 20 Mg Tab, 60 MG PO DAILY for 5 Days, TAB Prov:TIM GREENWOOD DO 08/08/18 Ibuprofen* (Motrin*) 600 Mg Tab, 600 MG PO Q6H PRN for PAIN AND OR ELEVATED TEMP, #30 TAB Prov:ISAIAH MARTINEZ MD 07/17/18 Apixaban* (Eliquis*) 5 Mg Tablet, 5 MG PO BID for 30 Days, #60 TAB 2 Refills Prov:MARIUSZ ARAMBULA 04/22/17 Reported Medications Metformin* (Glucophage*) 500 Mg Tab, 500 MG PO BID, #30 TAB 04/19/17 Allergies Allergies: Coded Allergies: No Known Allergy (Unverified , 04/19/17) PMhx/Soc History of Surgery: Yes (hysterectomy) Anesthesia Reaction: No Hx Neurological Disorder: No Hx Respiratory Disorders: No Hx Cardiac Disorders: Yes (HTN) Hx Psychiatric Problems: No Hx Miscellaneous Medical Probl: Yes (arthritis,DM) Hx Alcohol Use: No Hx Substance Use: No Hx Tobacco Use: No Smoking Status: Never smoker FmHx Family History: No diabetes, No coronary disease, No other Physical Exam Vitals Vital Signs Date Temp Pulse Resp B/P (MAP) Pulse Ox O2 O2 Flow FiO2 Time Delivery Rate 09/25/18 98.3 85 18 169/68 98 11:24 (101) Physical Exam Const: No acute distress. Uncomfortable due to pain. Head: Atraumatic Eyes: Normal Conjunctiva ENT: Normal External Ears, Nose and Mouth. Neck: Full range of motion. No meningismus. Resp: Clear to auscultation bilaterally Cardio: Regular rate and rhythm, no murmurs Abd: Soft, non tender, non distended. Normal bowel sounds Skin: No petechiae or rashes Back: No midline or flank tenderness Ext: No cyanosis, or edema. Generalized tenderness in the upper and lower extremity joints primarily shoulders, wrists, knees. She has some mild swelling possibly in the left lateral knee and mildly positive left Homans sign without significant swelling. Neur: Awake and alert Psych: Normal Mood and Affect Results 24 hrs Current Medications Medications Dose Sig/Sheryl Start Time Status Last (Trade) Ordered Route PRN Stop Time Admin Dose Reason Admin Ketorolac 30 mg ONCE STAT 09/25/18 DC 09/25/18 Tromethamine IM 12:35 12:53 (Toradol) 09/25/18 12:37 8 mg ONCE ONCE 09/25/18 DC 09/25/18 Dexamethasone IM 13:00 12:53 (Decadron) 09/25/18 13:01 1 tab ONCE ONCE 09/25/18 DC 09/25/18 Acetaminophen PO 13:00 12:53 / 09/25/18 13:01 Hydrocodone Bitart ([place] (5/325)) Procedures/MDM Chest X-ray 1V Interpreted by me: Soft Tissue: No acute abnormalities Bones: No acute abnormalities Mediastinum/Cardiac Silhouette/Lungs: No acute abnormalities. Impression- normal 1 view chest x-ray EKG: Rate/Rhythm: Normal Sinus Rhythm. Rate equals 62 QRS, ST, T-waves: No changes consistent w/ acute ischemia Impression: No evidence of ischemia or arrhythmia. Impression-no acute findings of ischemia or arrhythmia on EKG. Joint 8 mg IM and [place] 5 OF mouth. Patient signs and symptoms were appears to be a flareup of her rheumatoid arthritis. She has no signs or symptoms to suggest septic arthritis, cardiac chest pain, hypoxemia, rest or distress, left lower extremity Doppler shows no evidence of DVT. She will be treated with a short course of low-dose prednisone, tramadol, recommendations for primary care follow-up and return precautions. The patient was stable with no new complaints during the ER course. Clinically, there is no current evidence to suggest meningitis, sepsis, acute abdomen, pneumonia, stroke, acute coronary syndrome, pulmonary embolism, aortic dissection or any other emergent condition appearing to require further evaluation or hospitalization. Patient counseled regarding my diagnostic impression and care plan. Prior to discharge all questions answered. Pt agrees with treatment plan and understands strict return precautions. Pt is instructed to follow up with primary care provider within 24- 48 hours. Precautionary instructions provided including instructions to return to the ER if not improving or for any worsening or changing symptoms or concerns. Departure Diagnosis: Primary Impression: Multiple complaints Additional Impression: RA (rheumatoid arthritis) Condition: Stable Patient Instructions: Rheumatoid Arthritis Referrals: DOCTOR,NOT ON STAFF (PCP) Additional Instructions: Examines normal hoy. Cheque otro vez con olivares doctor primario en el proximo [place] or regresa para mas o nueva simptomas. PINA HARRISON MD Sep 25, 2018 13:34
== END 2018-09-25 14:22 | disposition home or self-care (01) ==
LOC: FTE 11:18
DX: M54.2 Cervicalgia (principal); I10 Essential (primary) hypertension; E11.9 Type 2 diabetes mellitus without complications; M54.9 Dorsalgia, unspecified; M06.9 Rheumatoid arthritis, unspecified; M79.605 Pain in left leg; Z79.84 Long term (current) use of oral hypoglycemic drugs
CPT/HCPCS: 71045; 93971; 96372; J1100; J1885; Z7502; Z7610; 93005

== ENCOUNTER 2018-10-28 14:47 | Emergency (ER) | payer OTHER ==
[~2018-10-28] VITALS: Wt 57.7 kg
[~2018-10-28 14:47] MED LIST changes: +PRED10TA PO; +TRAM50TA2 PO
[2018-10-28] MEDS ORDERED: SOD CHLORIDE 0.9% 1,000 ML IV STA (15:40)
[2018-10-28] MEDS ORDERED: ACETAMINOPHEN 325 MG TAB PO ONE (16:00)
[2018-10-28] MEDS ORDERED: KETOROLAC 15 MG INJ IV STA (17:39)
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
[2018-10-28] MEDS ORDERED: HYDR-4011 PO (18:16)
[2018-10-28] MEDS ORDERED: IBUP-1542 PO (18:16)
[2018-10-28] MEDS ORDERED: METH500T PO (18:16)
[2018-10-28] MEDS ORDERED: FER325 PO (18:21)
[2018-10-28 19:15] VITALS: BP 140/67; PULSE 62; RESP 18
--- NOTE | 2018-10-30 14:33 | RADRPT ---
Vent Rate: 68 bpm RR Interval: 0 msec IA Interval: 146 msec QRS Duration: 78 msec QT Interval: 366 msec QTC Interval: 389 msec P-R-T Imogene: 40 - 23 - 31 degrees Normal sinus rhythm Possible Anterior infarct , age undetermined Abnormal ECG Electronically Signed By: [facility]
== END 2018-10-28 19:20 | disposition home or self-care (01) ==
LOC: FTE 14:47
DX: S09.90XA Unspecified injury of head, initial encounter (principal); I10 Essential (primary) hypertension; E11.9 Type 2 diabetes mellitus without complications; S40.011A Contusion of right shoulder, initial encounter; W18.39XA Other fall on same level, initial encounter; Y92.9 Unspecified place or not applicable; Z79.84 Long term (current) use of oral hypoglycemic drugs
CPT/HCPCS: 36415; 70450; 72125; 73030; 80048; 81001; 83690; 85025; 93005; 96374; J1885; J7030; Z7502; Z7610

== ENCOUNTER 2018-12-25 10:21 | Emergency (ER) | payer OTHER ==
[~2018-12-25] VITALS: Ht 154.9 cm; Wt 65.0 kg
[~2018-12-25 10:21] MED LIST changes: +FER325 PO; +HYDR-4011 PO; +METH500T PO
[2018-12-25 10:31] VITALS: Ht 154.9 cm; Wt 65.0 kg
[2018-12-25] MEDS: morphine 4 MG/ML VIAL IV STA ×2 (10:57→11:24)
[2018-12-25] MEDS ORDERED: SOD CHLORIDE 0.9% 500 ML IV STA (10:57)
[2018-12-25] MEDS ORDERED: ONDANSETRON 4 MG INJ IV STA (10:57)
--- NOTE | 2018-12-25 12:54 | ERD ---
ER Documentation Chief Complaint Chief Complaint pt is bib friend with c/o tongue and facial numbness since 1600 yesterday HPI This is a 68-year-old female who has a past medical history of [id number] diabetes mellitus and is also on Eliquis as the patient states she has a remote history of blood clots. The patient indicates that for the past 24 hours she has been undergoing a significant amount of stress. She did state that yesterday around 4 PM, 21 hours prior to arrival, she developed numbness to the left side of her face. She also stated that she felt tingling on her tongue. She denies any weakness of her upper or lower extremities. She stated the numbness on the left side of her face was also a tingling-like sensation. She did not have any changes in vision. She denied any slurred speech. She denies any weakness. She does complain of a bandlike headache. She states this is not the worst headache of her life that she is experienced multiple similar headaches in the past. She said no fevers or shaking no chills. She denies any neck pain. She denies any frequency urgency or dysuria. She had no hemoptysis no hematemesis no melanotic stools. The patient does state that for the past 24 hours she has had generalized myalgias and a productive cough with greenish sputum. She denies any shortness of breath at rest or exertion. She had no recent travel or prolonged immobilization. She webster d no recent hospitalizations. ROS All systems reviewed and are negative except as per history of present illness. Medications Home Meds Active Scripts Ferrous Sulfate* (Ferrous Sulfate*) 325 Mg Tabec, 325 MG PO DAILY, #60 TAB Prov:TIM GREENWOOD DO 10/28/18 Ibuprofen* (Motrin*) 600 Mg Tab, 600 MG PO Q6H PRN for MILD PAIN(1-3)OR ELEVATED TEMP, #30 TAB Prov:TIM GREENWOOD A. DO 10/28/18 Methocarbamol* (Robaxin*) 500 Mg Tab, 500 MG PO Q8, #10 TAB Prov:MATILDE GREENWOODS AAngus DO 10/28/18 Hydrocodone/Acetaminophen ([place] 5-325 Tablet) 1 Each Tablet, 1 TAB PO Q6H PRN for PAIN, #16 TAB Prov:TIM GREENWOOD DO 10/28/18 Prednisone (Prednisone) 10 Mg Tab, 10 MG PO QDAY for 7 Days, TAB Prov:PINA HARRISON MD 09/25/18 Tramadol HCl (Tramadol HCl) 50 Mg Tablet, 50 MG PO Q4 PRN for PAIN, #20 TAB Prov:PINA HARRISON MD 09/25/18 Ibuprofen* (Motrin*) 600 Mg Tab, 600 MG PO Q8, #15 TAB Prov:TIM GREENWOOD DO 08/08/18 Hydrocodone/Acetaminophen ([place] 10-325 Tablet) 1 Each Tablet, 1 TAB PO Q6H PRN for PAIN, #9 TAB Prov:TIM GREENWOOD DO 08/08/18 Prednisone* (Prednisone*) 20 Mg Tab, 60 MG PO DAILY for 5 Days, TAB Prov:TIM GREENWOOD DO 08/08/18 Ibuprofen* (Motrin*) 600 Mg Tab, 600 MG PO Q6H PRN for PAIN AND OR ELEVATED TEMP, #30 TAB Prov:ISAIAH MARTINEZ MD 07/17/18 Apixaban* (Eliquis*) 5 Mg Tablet, 5 MG PO BID for 30 Days, #60 TAB 2 Refills Prov:MARIUSZ ARAMBULA 04/22/17 Reported Medications Metformin* (Glucophage*) 500 Mg Tab, 500 MG PO BID, #30 TAB 04/19/17 Allergies Allergies: Coded Allergies: No Known Allergy (Unverified , 04/19/17) PMhx/Soc History of Surgery: Yes (hysterectomy) Anesthesia Reaction: No Hx Neurological Disorder: No Hx Respiratory Disorders: No Hx Cardiac Disorders: Yes (HTN) Hx Psychiatric Problems: No Hx Miscellaneous Medical Probl: Yes (arthritis,DM) Hx Alcohol Use: No Hx Substance Use: No Hx Tobacco Use: No Smoking Status: Never smoker Physical Exam Vitals Vital Signs Date Temp Pulse Resp B/P (MAP) Pulse Ox O2 O2 Flow FiO2 Time Delivery Rate 12/25/18 98.3 104 22 84/43 (57) 90 10:31 Physical Exam Constitutional:Well-developed. Well-nourished. HEENT:Normocephalic. Atraumatic.Pupils were equal round reactive to light. Moist mucous membranes.No tonsillar exudates. Neck: No nuchal rigidity. No lymphadenopathy. No posterior cervical spine tenderness or step-offs. Respiratory: Not using accessory muscles of respiration.Lungs were clear to auscultation bilaterally. No rhonchi. No rales. No wheezing. Cardiovascular: Regular rate regular rhythm.No murmurs. No rubs were appreciate d.S1, S2 normal. Distal pulses are palpable 2+ bilaterally. GI: Abdomen was soft. Nontender. Non Distended. No pulsatile abdominal masses or bruits. No rebound. No guarding. Bowel sounds were present and normal. Muscle skeletal: Full range of motion of both the upper and lower extremities bilaterally.Normal muscle tone.No assymetrical calf tenderness or swelling. Skin: No petechia, no purpura. No lesions on the palms or the soles of the feet. No maculopapular rash. NEURO: Patient was alert, awake, orientated x3.No facial droop. Gait observed and normal with no ataxia.Speech had regular rate and rhythm. No focal neurological deficits. Sensation intact to sharp and dull in the upper lower e xtremities and facial region. Romberg sign negative. No pronator drift. Result Diagram: 12/25/18 1120 12/25/18 1120 Results 24 hrs Laboratory Tests Test 12/25/18 10:28 12/25/18 11:20 Bedside Glucose 182 mg/dL White Blood Count 10.5 10^3/ul Red Blood Count 3.24 10^6/ul Hemoglobin 7.3 g/dl Hematocrit 23.4 % Mean Corpuscular Volume 72.2 fl Mean Corpuscular Hemoglobin 22.5 pg Mean Corpuscular Hemoglobin Concent 31.2 g/dl Red Cell Distribution Width 16.5 % Platelet Count 559 10^3/UL Mean Platelet Volume 8.8 fl Immature Granulocytes % 0.400 % Neutrophils % 75.5 % Lymphocytes % 15.1 % Monocytes % 6.3 % Eosinophils % 2.2 % Basophils % 0.5 % Nucleated Red Blood Cells % 0.0 /100WBC Immature Granulocytes # 0.040 10^3/ul Neutrophils # 7.9 10^3/ul Lymphocytes # 1.6 10^3/ul Monocytes # 0.7 10^3/ul Eosinophils # 0.2 10^3/ul Basophils # 0.1 10^3/ul Nucleated Red Blood Cells # 0.0 10^3/ul Prothrombin Time 15.1 Sec Prothrombin Time Ratio 1.2 INR International Normalized Ratio 1.18 Activated Partial Thromboplast Time 35.6 Sec Sodium Level 139 mmol/L Potassium Level 3.9 mmol/L Chloride Level 101 mmol/L Carbon Dioxide Level 26 mmol/L Anion Gap 12 Blood Urea Nitrogen 20 mg/dl Creatinine 0.82 mg/dl Est Glomerular Filtrat Rate mL/min > 60 mL/min Glucose Level 196 mg/dl Calcium Level 9.7 mg/dl Total Bilirubin 0.3 mg/dl Direct Bilirubin 0.00 mg/dl Indirect Bilirubin 0.3 mg/dl Aspartate Amino Transf (AST/SGOT) 51 IU/L Alanine Aminotransferase (ALT/SGPT) 36 IU/L Alkaline Phosphatase 140 IU/L Creatine Kinase < 20 IU/L Creatine Kinase Index Creatinine Kinase MB (Mass) < 0.22 ng/ml Troponin I < 0.012 ng/ml B-Type Natriuretic Peptide 578 PG/ML Total Protein 7.6 g/dl Albumin 3.6 g/dl Globulin 4.00 g/dl Albumin/Globulin Ratio 0.90 Current Medications Medications Dose Sig/Sheryl Start Time Status Last (Trade) Ordered Route PRN Stop Time Admin Dose Reason Admin Sodium 500 ml @ Q1H STAT 12/25/18 DC 12/25/18 Chloride 500 mls/hr IV 10:57 11:23 12/25/18 11:56 Morphine 4 mg ONCE STAT 12/25/18 DC Sulfate IV 10:57 (morphine) 12/25/18 10:59 Ondansetron 4 mg ONCE STAT 12/25/18 DC 12/25/18 HCl (Zofran IV 10:57 11:24 Inj) 12/25/18 10:59 Procedures/MDM This is a 68-year-old female presented to the emergency department with numbness and tingling to the left side of her face. The patient had no focal neurological deficits appreciated on physical exam. She was placed in a monitor car operator continuous pulse oximetry and IV access was established by nursing staff. I did obtain a CT scan the patient's head there is no intracerebral hemorrhage mass-effect or midline shift. Chest radiograph showed patchy consolidations in the lower lung bases that could be a result of her generalized myalgias. Patient had no leukocytosis. Patient was afebrile. Patient was able to tolerate oral intake. 12 Lead EKG tracing ordered and reviewed by myself showed: Normal sinus rhythm of 90 bpm and no arrhythmia. ME interval normal. QRS duration normal. No ST segment elevation No ST segment depression. Q waves present in the inferior lead III and aVF. Ancillary laboratory work indicated the patient did have a microcytic anemia with a hemoglobin of 7.3. I reviewed the previous medical records and the patient has a history of chronic anemia. July 2017 the patient's hemoglobin was 2.9. October 2018 the patient's hemoglobin was 8. The patient had no signs of an upper or lower active gastrointestinal bleed. She has not had any postmenopausal bleeding. I indicated the patient that I do not feel her symptoms were result of a cerebrovascular accident but rather paresthesias. The patient to receive Ativan as she was slightly anxious in the emergency department. She had no severe electrolyte abnormalities or evidence of diabetic ketoacidosis. The patient felt comfortable being discharged home with oral antibiotics. Departure Diagnosis: Primary Impression: Paresthesia Additional Impressions: Anemia Anemia type: iron deficiency Iron deficiency anemia type: unspecified iron deficiency Qualified Codes: D50.9 - Iron deficiency anemia, unspecified Pneumonia Pneumonia type: due to unspecified organism Laterality: bilateral Lung location: lower lobe of lung Qualified Codes: J18.1 - Lobar pneumonia, unspecified organism Condition: JAIR Minaya MD Dec 25, 2018 12:53
[2018-12-25] MEDS ORDERED: ALBUTEROL/IPRATROPIUM (NEB) 3 ML AMP HHN STA (12:58)
[2018-12-25] MEDS ORDERED: ALBU8.5H8 INH (12:59)
[2018-12-25] MEDS ORDERED: AZIT250T PO (12:59)
[2018-12-25 14:54] VITALS: PULSE 82
[2018-12-25 15:55] VITALS: BP 106/52; RESP 18
== END 2018-12-25 15:54 | disposition home or self-care (01) ==
LOC: E/R 10:21
DX: D50.9 Iron deficiency anemia, unspecified (principal); J18.1 Lobar pneumonia, unspecified organism; R20.2 Paresthesia of skin; I10 Essential (primary) hypertension; E11.9 Type 2 diabetes mellitus without complications; R06.02 Shortness of breath; Z79.84 Long term (current) use of oral hypoglycemic drugs
CPT/HCPCS: 70450; 71045; 80053; 82550; 82553; 82962; 83880; 84484; 85025; 85610; 85730; 94664; 96374; J2270; J2405; J7040; Z7502; Z7610; 93005